=== PATIENT | male | born 1940 | race Caucasian/White ===

== ENCOUNTER → 2020-01-16 | Outpatient (CLI) | payer MEDICARE, BC ==
[2020-01-16 10:23] LABS: HCT 47.9 % (39.0-53.0); HGB 15.1 gm/dL (13.0-17.5); MCHC 31.4 g/dL (31.0-37.0); MCV 95.5 fL (80.0-100.0); Mean Platelet Volume 8.3; Platelet Count 187 k/uL (150-450); RBC 5.02 m/uL (4.30-5.90); RDW 13.3 % (11.5-15.5); WBC 9.9 k/uL (3.8-10.6)
[2020-01-16 17:26] LABS: African American GFR (CKD) 99.2 (60.0-200.0); Anion Gap 8.1 mmol/L (4.00-12.00); BUN/Creat Ratio 33.75 Ratio (12.00-20.00); Calcium 8.9 mg/dL (8.7-10.3); Carbon Dioxide 26.9 mmol/L (21.6-31.8); Chol/HDL Ratio 3.84; LDL Cholesterol,Calculated 106.2 mg/dL (0.0-131.0); Non-African American GFR(CKD) 85.6 (60.0-200.0); Potassium 4.6 mmol/L (3.5-5.5); VLDL Calculation 15.8 mg/dL (5.00-40.00)
[2020-01-16 18:51] LABS: Urine Creatinine 83.9 mg/dL
== END | disposition home or self-care (01) ==
LOC: LABWHC1 09:07
PROVIDERS: ATTEND Nurse Practitioner
DX: I48.21 Permanent atrial fibrillation (principal); E66.9 Obesity, unspecified; I10 Essential (primary) hypertension; E78.5 Hyperlipidemia, unspecified; E55.9 Vitamin D deficiency, unspecified
CPT/HCPCS: 36415; 80048; 80061; 82043; 82306; 82570; 83735; 84156; 84439; 84443; 84450; 84460; 85027

== ENCOUNTER 2020-10-09 13:02 | Emergency (ER) | payer MEDICARE, BC ==
--- NOTE | 2020-10-09 14:15 | ED ---
General Adult HPI - General Chief complaint: Recheck/Abnormal Lab/Rx Stated complaint: foreign object in throat Time Seen by Provider: 10/09/20 13:37 Source: patient Mode of arrival: ambulatory Limitations: physical limitation - History of Present Illness Initial comments: 80-year-old male presents to the emergency department with the chief complaint of a fish bone stuck in the throat. States he ate fish about 3 hours prior to arrival and has developed a foreign body sensation in his throat. Patient believes there is a piece stuck in his throat. Although, he is able to swallow with pain difficulties, he continues to have discomfort with swallowing. He denies any difficulty breathing. He denies any choking episodes. - Related Data Home Medications Medication Instructions Recorded Confirmed Rivaroxaban [Xarelto] 20 mg PO DAILY 02/21/14 10/09/20 lisinopriL [Zestril] 5 mg PO DAILY 02/21/14 10/09/20 Cholecalciferol [Vitamin D3 (25 50 mcg PO BID 10/09/20 10/09/20 Mcg = 1000 Iu)] Metoprolol Tartrate [Lopressor] 25 mg PO BID 10/09/20 10/09/20 Allergies Allergy/AdvReac Type Severity Reaction Status Date / Time ibuprofen [From Motrin] Allergy Unknown Verified 10/09/20 14:17 Review of Systems ROS Statement: Those systems with pertinent positive or pertinent negative responses have been documented in the HPI. ROS Other: All systems not noted in ROS Statement are negative. Past Medical History Past Medical History: CVA/TIA, Hyperlipidemia, Hypertension History of Any Multi-Drug Resistant Organisms: None Reported Additional Past Surgical History / Comment(s): kidney stone removal Past Psychological History: No Psychological Hx Reported Smoking Status: Never smoker Past Alcohol Use History: None Reported Past Drug Use History: None Reported General Exam Limitations: physical limitation General appearance: alert, in no apparent distress, obese Head exam: Present: atraumatic, normocephalic, normal inspection Eye exam: Present: normal appearance, PERRL, EOMI Pupils: Present: normal accommodation ENT exam: Present: normal exam, normal oropharynx (No visible foreign bodies in the posterior pharynx.), mucous membranes moist Neck exam: Present: normal inspection, full ROM. Absent: tenderness Respiratory exam: Present: normal lung sounds bilaterally. Absent: respiratory distress, wheezes, rales, rhonchi, stridor Cardiovascular Exam: Present: regular rate, normal rhythm, normal heart sounds. Absent: systolic murmur Extremities exam: Present: normal inspection, full ROM, normal capillary refill. Absent: tenderness, pedal edema, joint swelling Back exam: Present: normal inspection, full ROM. Absent: tenderness, CVA tenderness (R) Neurological exam: Present: alert, oriented X3 Psychiatric exam: Present: normal affect, normal mood Skin exam: Present: warm, dry, intact, normal color Course Vital Signs 10/09/20 10/09/20 10/09/20 13:22 15:06 15:20 Temperature 97.8 F 98.0 F Pulse Rate 99 96 Respiratory 20 18 Rate Blood Pressure 150/79 130/74 O2 Sat by Pulse 95 96 Oximetry Medical Decision Making - Medical Decision Making 80-year-old male presents to the emergency department with the chief complaint of a fish bone stuck in the throat. On physical examination, patient does not appear to be in any respiratory distress. He still able to swallow without difficulties. I was not able to detect any foreign bodies in the oropharynx. Soft tissue neck x-ray reveals no findings of any foreign body. The patient did report that his symptoms have been gradually improving ever since he began to have symptoms. Patient was given a GI cocktail and observed. He did report improvement in his symptoms. I suspect the patient likely had a scratch in the throat as the fishbone went down to the stomach. Patient will be discharged with outpatient follow-up. Return parameters discussed the patient is standing and agreeable. Case discussed with Dr. Luis Schofield Clinical Impression: Throat discomfort Disposition: HOME SELF-CARE Condition: Stable Instructions (If sedation given, give patient instructions): Strep Throat (DC) Additional Instructions: Please return to the Emergency Department if symptoms worsen or any other concerns. Is patient prescribed a controlled substance at d/c from ED?: No Referrals: None,Stated [Primary Care Provider] - 1-2 days Time of Disposition: 15:07
--- NOTE | 2020-10-09 14:22 | XR ---
EXAMINATION TYPE: XR soft tissue neck DATE OF EXAM: 10/09/2020 COMPARISON: NONE HISTORY: Fishbone stuck in the throat TECHNIQUE: 3 views FINDINGS: Epiglottis is normal. Tonsils and adenoids appear normal. There is calcification of the thy roid and cricoid cartilage which obscures the cervical esophagus to some extent. IMPRESSION: No definite foreign body in the soft tissues of the neck.
[2020-10-09] MEDS ORDERED: MAG HYDROX/AL HYDROX/SIMETH 30 ML, HYOSCYAMINE ELIXIR 10 ML, LIDOCAINE VISCOUS 2% 10 ML PO STA ×3 (14:40)
[2020-10-09 15:09] VITALS: BP 130/74; PULSE 96; RESP 18
[2020-10-09 15:43] VITALS: TEMP 98
== END 2020-10-09 15:20 | disposition home or self-care (01) ==
LOC: EC 13:02
DX: R07.0 Pain in throat (principal); E78.5 Hyperlipidemia, unspecified; I10 Essential (primary) hypertension; Z87.442 Personal history of urinary calculi; Z86.73 Personal history of transient ischemic attack (TIA), and cerebral infarction without residual deficits
CPT/HCPCS: 70360; 99283

== ENCOUNTER 2021-08-02 08:50 | Emergency (ER) | payer MEDICARE, BC ==
[2021-08-02 08:55] VITALS: BP 124/78; PULSE 90; RESP 18; TEMP 97.6
--- NOTE | 2021-08-02 09:02 | ED ---
General Adult HPI - General Source: patient, RN notes reviewed, old records reviewed Mode of arrival: wheelchair Limitations: no limitations <Ramiro Sanderson - Last Filed: 08/02/21 09:55> <Shantelle Lester - Last Filed: 08/02/21 10:45> - General Chief complaint: Extremity Injury, Lower Stated complaint: fall, ankle pain Time Seen by Provider: 08/02/21 08:55 - History of Present Illness Initial comments: This is an 81-year-old male who presents emergency department stating that he fell last night and his ankle on the left side was hurting extremely bad so he tried to push off her shoe with his other foot he felt a pop and the pain was much improved. Patient still complains of lateral and medial ankle pain little bit of lateral foot pain and some proximal leg pain. Patient denies any knee pain. Patient denies any hip pain. Patient denies hitting his head or neck. Patient denies any other problems besides what was previously mentioned. Patient is on a blood thinner. (Ramiro Sanderson) - Related Data Home Medications Medication Instructions Recorded Confirmed Rivaroxaban [Xarelto] 20 mg PO DAILY 02/21/14 10/09/20 lisinopriL [Zestril] 5 mg PO DAILY 02/21/14 10/09/20 Cholecalciferol [Vitamin D3 (25 50 mcg PO BID 10/09/20 10/09/20 Mcg = 1000 Iu)] Metoprolol Tartrate [Lopressor] 25 mg PO BID 10/09/20 10/09/20 Allergies Allergy/AdvReac Type Severity Reaction Status Date / Time ibuprofen [From Motrin] Allergy Unknown Verified 08/02/21 08:54 Review of Systems ROS Other: All systems not noted in ROS Statement are negative. <Ramiro Sanderson - Last Filed: 08/02/21 09:55> ROS Other: All systems not noted in ROS Statement are negative. <Shantelle Lester - Last Filed: 08/02/21 10:45> ROS Statement: Those systems with pertinent positive or pertinent negative responses have been documented in the HPI. Past Medical History Past Medical History: CVA/TIA, Hyperlipidemia, Hypertension History of Any Multi-Drug Resistant Organisms: None Reported Additional Past Surgical History / Comment(s): kidney stone removal Past Psychological History: No Psychological Hx Reported Smoking Status: Never smoker Past Alcohol Use History: None Reported Past Drug Use History: None Reported <Ramiro Sanderson - Last Filed: 08/02/21 09:55> General Exam Limitations: no limitations <Ramiro Sanderson - Last Filed: 08/02/21 09:55> - General Exam Comments Initial Comments: GENERAL Patient is well-developed and well-nourished. Patient is in mild distress. EYES Patient's pupils are equal and round. Extraocular motion is intact SKIN Unremarkable NEURO The patient is alert and oriented 3 PYSCH Patient has normal interpersonal interactions. MUSCULOSKELETAL Patient has significant swelling and ecchymosis to his ankle he has some proximal leg tenderness at the fibula. Patient has tenderness to both lateral and medial malleolus and some slight tenderness to the proximal fifth metatarsal. (Ramiro Sanderson) Course Vital Signs 08/02/21 08:52 Temperature 97.6 F Pulse Rate 90 Respiratory 18 Rate Blood Pressure 124/78 O2 Sat by Pulse 96 Oximetry Procedures - Orthopedic Splinting/Casting Injury #1 Side: left Lower Extremity Immobilizer: posterior splint, Hu wrap, synthetic pre-padded splint <Shantelle Lester - Last Filed: 08/02/21 10:45> Medical Decision Making <Ramiro Sanderson - Last Filed: 08/02/21 09:55> - Medical Decision Making X-rays of the foot ankle and tibia-fibula show no fracture. Patient was put in a posterior splint. Patient will be following up with orthopedic clear tomorrow. She was given a prescription for a walker (Ramiro Sanderson) Disposition Is patient prescribed a controlled substance at d/c from ED?: No Time of Disposition: 09:57 <Ramiro Sanderson - Last Filed: 08/02/21 09:55> <Shantelle Lester - Last Filed: 08/02/21 10:45> Clinical Impression: Sprain of ligament of ankle Disposition: HOME SELF-CARE Instructions (If sedation given, give patient instructions): Ankle Sprain (ED) Referrals: Miguel Wren DO [Doctor of Osteopathic Medicine] - 1-2 days
--- NOTE | 2021-08-02 09:50 | XR ---
EXAMINATION TYPE: XR tibia fibula LT, XR foot complete LT, XR ankle complete LT DATE OF EXAM: 08/02/2021 CLINICAL HISTORY: Pain and swelling after fall injury. TECHNIQUE: Two views of the left leg are obtained. 3 views of left ankle and foot. COMPARISON: None. FINDINGS: There is no acute fracture or dislocation seen in the left tibia or fibula. Visualized por tion of left knee joint appears within normal limits. Prominent posterior arteriovascular calcificati on is seen. Images of left ankle show no acute fracture or dislocation. Ankle mortise symmetry is maintained. Mil d to moderate diffuse subcutaneous edema and soft tissue swelling is noted. Images of the left foot show no acute displaced fracture. Osseous structures are demineralized. There is moderate narrowing first metatarsophalangeal joint. There is moderate spurring dorsal base of the cuneiform extending towards the navicular bone. IMPRESSION: There is no acute fracture or dislocation seen in the left leg, ankle, or foot.
== END 2021-08-02 11:32 | disposition home or self-care (01) ==
LOC: EC 08:50
DX: S93.492A Sprain of other ligament of left ankle, initial encounter (principal); E78.5 Hyperlipidemia, unspecified; I10 Essential (primary) hypertension; Z88.6 Allergy status to analgesic agent; Z86.73 Personal history of transient ischemic attack (TIA), and cerebral infarction without residual deficits; Z87.442 Personal history of urinary calculi; W18.30XA Fall on same level, unspecified, initial encounter
CPT/HCPCS: 29515; 99283

== ENCOUNTER 2021-08-06 18:44 | Inpatient (IN) | payer MEDICARE, BC ==
[2021-08-06] MEDS ORDERED: DOXYCYCLINE 100 MG in SODIUM CHLORIDE 0.9% 100 ML IVPB ONE (18:59)
--- NOTE | 2021-08-06 19:03 | ED ---
Extremity Problem HPI - General Chief complaint: Extremity Problem,Nontraumatic Stated complaint: infection lt leg Time Seen by Provider: 08/06/21 18:52 Source: patient, RN notes reviewed Mode of arrival: wheelchair Limitations: no limitations - History of Present Illness Initial comments: This is a pleasant 81-year-old male with a history of CVA, hyperlipidemia, hypertension. He presents to the emergency department today complaining of an infection to his left lower leg. Patient states he was seen here about 4 days ago after tripping over his wheelchair. Patient sustained some scrapes to his left lower leg. Patient had x-rays done here which were negative. Patient states he noted some redness to the area yesterday. He went to urgent care and was sent here for evaluation. Patient states she feels fine otherwise. Patient denies any fever or chills. Denies any shortness breath or chest pain. No other skin rashes or lesions. Erythema is relegated to the left lower extremities. Patient does have some intact blood noted. No headache, no fever or chills, no changes in vision or hearing, no sore throat or difficulty with speech, no neck pain, no chest pain or shortness of breath, no abdominal pain, no nausea or vomiting, no changes in urination or bowel movements, no numbness or tingling, patient has had no subsequent injury. Is not diabetic, no immunosuppression. - Related Data Home Medications Medication Instructions Recorded Confirmed Rivaroxaban [Xarelto] 20 mg PO DAILY 02/21/14 08/06/21 lisinopriL [Zestril] 5 mg PO DAILY 02/21/14 08/06/21 Cholecalciferol [Vitamin D3 (25 50 mcg PO BID 10/09/20 08/06/21 Mcg = 1000 Iu)] Metoprolol Tartrate [Lopressor] 25 mg PO BID 10/09/20 08/06/21 Nystatin 100,000Unit/gm Cream 1 applic TOPICAL BID 08/06/21 08/06/21 [Mycostatin Cream] Triamcinolone 0.025% Cream 1 applic TOPICAL BID 08/06/21 08/06/21 [Kenalog 0.025% Cream] Vit C/E/Zn/Coppr/Lutein/Zeaxan 1 cap PO BID 08/06/21 08/06/21 [Preservision Areds 2 Softgel] Allergies Allergy/AdvReac Type Severity Reaction Status Date / Time ibuprofen [From Motrin] Allergy Unknown Verified 08/06/21 18:46 Review of Systems ROS Statement: Those systems with pertinent positive or pertinent negative responses have been documented in the HPI. ROS Other: All systems not noted in ROS Statement are negative. Past Medical History Past Medical History: CVA/TIA, Hyperlipidemia, Hypertension History of Any Multi-Drug Resistant Organisms: None Reported Additional Past Surgical History / Comment(s): kidney stone removal Past Psychological History: No Psychological Hx Reported Smoking Status: Never smoker Past Alcohol Use History: None Reported Past Drug Use History: None Reported General Exam - General Exam Comments Initial Comments: Elderly male in no significant distress. Patient does not appear to be ill or toxic. Limitations: no limitations General appearance: alert, in no apparent distress Head exam: Present: atraumatic, normocephalic, normal inspection Eye exam: Present: normal appearance, PERRL, EOMI. Absent: scleral icterus, conjunctival injection, periorbital swelling ENT exam: Present: normal exam, mucous membranes moist Neck exam: Present: normal inspection. Absent: tenderness, meningismus, lymphadenopathy Respiratory exam: Present: normal lung sounds bilaterally. Absent: respiratory distress, wheezes, rales, rhonchi, stridor Cardiovascular Exam: Present: regular rate, normal rhythm, normal heart sounds. Absent: systolic murmur, diastolic murmur, rubs, gallop, clicks GI/Abdominal exam: Present: soft, normal bowel sounds. Absent: distended, tenderness, guarding, rebound, rigid Extremities exam: Present: full ROM, normal capillary refill, pedal edema. Absent: tenderness, joint swelling, calf tenderness Back exam: Present: normal inspection Neurological exam: Present: alert, oriented X3, CN II-XII intact Psychiatric exam: Present: normal affect, normal mood Skin exam: Present: warm, dry, intact, normal color, erythema (Erythema, significant in the left lower leg. Consistent with cellulitis), other (Intact bulla noted to bilateral lower legs.). Absent: rash Course Vital Signs 08/06/21 08/06/21 18:46 21:44 Temperature 97.5 F L 97.3 F L Pulse Rate 91 89 Respiratory 16 16 Rate Blood Pressure 119/80 111/66 O2 Sat by Pulse 96 96 Oximetry - Reevaluation(s) Reevaluation #1: 08/06/21 20:24 Medical record is reviewed Symptoms are unchanged, hemodialysis stable, capillary refill less than 2 seconds Patient is informed of results and questions answered Patient in no distress Procedures - Sepsis Sepsis Focused Exam #1 Sepsis Focused Exam Date: 08/06/21 Sepsis Focused Exam Time: 21:42 Sepsis Focused Exam Complete: Yes Vital Signs & RN Notes Reviewed: Yes Capillary Refill: < 2 Seconds: Fingers, Toes Peripheral Pulses: Strong: Radial (R), Radial (L), Posterior Tibialis (R), Posterior Tibialis (L), Dorsalis Pedis (R), Dorsalis Pedis (L) Skin Color: Normal for Patient Respiratory Exam: normal lung sounds Cardiovascular Exam: regular rate Medical Decision Making - Medical Decision Making Patient previously had Streptococcus epidermidis in 2016. We'll cover with doxycycline for the moment until initial laboratory investigations her back. Note that the patient is on Xarelto Patient hemodynamically stable. Meets the sepsis criteria. Started on IV fluids at 130 mL per hour. Antibiotics ordered. Case discussed in detail with the on-call hospitalist from [facility], Dr. Lea. The case was discussed in detail with ED attending physician. Presentation, findings, treatment plan discussed in detail. Patient hemodynamically stable at admission - Lab Data Result diagrams: 08/06/21 19:26 08/06/21 19: Lab Results 08/06/21 08/06/21 Range/Units 19:26 19:26 WBC 12.4 H (3.8-10.6) k/uL RBC 4.57 (4.30-5.90) m/uL Hgb 14.4 (13.0-17.5) gm/dL Hct 43.6 (39.0-53.0) % MCV 95.5 (80.0-100.0) fL MCH 31.5 (25.0-35.0) pg MCHC 33.0 (31.0-37.0) g/dL RDW 13.8 (11.5-15.5) % Plt Count 207 (150-450) k/uL MPV 8.5 Sodium 133 L (137-145) mmol/L Potassium 4.6 (3.5-5.1) mmol/L Chloride 102 (98-107) mmol/L Carbon Dioxide 27 (22-30) mmol/L Anion Gap 4 mmol/L BUN 30 H (9-20) mg/dL Creatinine 0.76 (0.66-1.25) mg/dL Est GFR (CKD-EPI)AfAm >90 (>60 ml/min/1.73 sqM) Est GFR (CKD-EPI)NonAf 86 (>60 ml/min/1.73 sqM) Glucose 96 (74-99) mg/dL Calcium 8.5 (8.4-10.2) mg/dL Total Bilirubin 0.9 (0.2-1.3) mg/dL AST 26 (17-59) U/L ALT 20 (4-49) U/L Alkaline Phosphatase 61 (38-126) U/L Total Protein 6.6 (6.3-8.2) g/dL Albumin 3.5 (3.5-5.0) g/dL Critical Care Time Critical Care Time: Yes (Sepsis criteria, reevaluation patient's condition. Evaluation of diagnosti) Total Critical Care Time: 30 Disposition Clinical Impression: Bilateral cellulitis of lower leg, Sepsis Disposition: ADMITTED IP TO THIS [facility] Condition: Stable Referrals: Demarco Calderon MD [Primary Care Provider] - 1-2 days Time of Disposition: 20:25 Decision to Admit Reason: Admit from EC Decision Time: 20:25
[2021-08-06 20:05] LABS: HCT 43.6 % (39.0-53.0); HGB 14.4 gm/dL (13.0-17.5); MCH 31.5 pg (25.0-35.0); MCV 95.5 fL (80.0-100.0); Mean Platelet Volume 8.5; Platelet Count 207 k/uL (150-450); RBC 4.57 m/uL (4.30-5.90); RDW 13.8 % (11.5-15.5); WBC 12.4 k/uL (3.8-10.6)
[2021-08-06 20:17] LABS: ALT 20 U/L (4-49); AST 26 U/L (17-59); African American GFR (CKD) >90 (>60 ml/min/1.73 sqM); Albumin 3.5 g/dL (3.5-5.0); Alkaline Phosphatase 61 U/L (38-126); Anion Gap 4 mmol/L; Blood Urea Nitrogen 30 mg/dL (9-20); Calcium 8.5 mg/dL (8.4-10.2); Carbon Dioxide 27 mmol/L (22-30); Chloride 102 mmol/L (98-107); Glucose 96 mg/dL (74-99); Non-African American GFR(CKD) 86 (>60 ml/min/1.73 sqM); Potassium 4.6 mmol/L (3.5-5.1); Sodium 133 mmol/L (137-145); Total Bilirubin 0.9 mg/dL (0.2-1.3); Total Protein 6.6 g/dL (6.3-8.2)
[2021-08-06] MEDS ORDERED: SODIUM CHLORIDE 0.9% 500 ML 500 ML IV ONE (20:39)
[2021-08-06] MEDS ORDERED: ONDANSETRON 4 MG/2 ML VIAL IVP PRN (21:11)
[2021-08-06] MEDS ORDERED: ACETAMINOPHEN TAB 325 MG TAB PO PRN (21:11)
[2021-08-06] MEDS: SODIUM CHLORIDE 0.9% 1,000 ML IV SCH (21:36)
--- NOTE | 2021-08-07 02:32 | P.HPIM ---
History of Present Illness H&P Date: 08/06/21 The patient is an 81-year-old male with a PMH of hypertension, hyperlipidemia, and CVA (on Xarelto) who presents to the emergency room with complaints of left leg pain and redness. The patient had initially presented to the emergency room on 08/07 after he had a mechanical fall where he suffered abrasions and laceration of the left leg. The patient had undergone x-rays which were unremarkable and the patient was subsequently sent home. He reports however that over the past 24 hours, he noticed gradually worsening redness and pain of the leg. He went to an urgent care center earlier today from where he was sent to the emergency room. Denied any additional complaints. Denied extremity any fever, chills, chest pain, shortness of breath, nausea, vomiting, abdominal pain, diarrhea. Review of systems: Pertinent positives and negatives as discussed in HPI, a complete review of systems was performed and all other systems are negative. Physical examination: General: non toxic, no distress, appears at stated age, morbidly obese Derm: Left lower extremity circumferential erythema, warmth, and tenderness, warm, dry Head: atraumatic, normocephalic, symmetric Eyes: EOMI, no lid lag, anicteric sclera, pupils equal round reactive to light ENT: Nose and ears atraumatic, no thrush, no pharyngeal erythema Neck: No thyromegaly, no cervical lymphadenopathy, trachea midline, supple Mouth: no lip lesion, mucus membranes moist Cardiovascular: S1S2 reg, no murmur, positive posterior tibial pulse bilateral, left lower extremity 1+ pitting edema to knees, capillary refill less than 2 seconds Lungs: CTA bilateral, no rhonchi, no rales , no accessory muscle use Abdominal: soft, nontender to palpation, no guarding, no appreciable organomegaly, normal bowel sounds Ext: no gross muscle atrophy, muscle strength 5 out of 5 in all 4 extremities grossly, no contractures, Neuro: CN II-XI grossly intact, light touch intact all 4 extremities, finger to nose within normal limits, Psych: Alert, oriented, appropriate affect Assessment/plan Sepsis secondary to Left lower extremity cellulitis -Continue with Doxycycline and Cefazolin -Follow up blood cultures -IV fluids -Obtain left lower extremity Doppler to rule out DVT Chronic conditions: Hypertension, hyperlipidemia, history of CVA -Continue with home meds DVT prophylaxis -Xarelto The patient is admitted with an anticipated greater than 2 midnight stay for evaluation of cellulitis CODE STATUS: Full Code Discussed with: Patient Anticipated discharge date: 08/[address]: Home Past Medical History Past Medical History: CVA/TIA, Hyperlipidemia, Hypertension History of Any Multi-Drug Resistant Organisms: None Reported Additional Past Surgical History / Comment(s): kidney stone removal Past Psychological History: No Psychological Hx Reported Smoking Status: Never smoker Past Alcohol Use History: None Reported Past Drug Use History: None Reported Medications and Allergies Home Medications Medication Instructions Recorded Confirmed Type Rivaroxaban [Xarelto] 20 mg PO DAILY 02/21/14 08/06/21 History lisinopriL [Zestril] 5 mg PO DAILY 02/21/14 08/06/21 History Cholecalciferol [Vitamin D3 (25 50 mcg PO BID 10/09/20 08/06/21 History Mcg = 1000 Iu)] Metoprolol Tartrate [Lopressor] 25 mg PO BID 10/09/20 08/06/21 History Nystatin 100,000Unit/gm Cream 1 applic TOPICAL BID 08/06/21 08/06/21 History [Mycostatin Cream] Triamcinolone 0.025% Cream 1 applic TOPICAL BID 08/06/21 08/06/21 History [Kenalog 0.025% Cream] Vit C/E/Zn/Coppr/Lutein/Zeaxan 1 cap PO BID 08/06/21 08/06/21 History [Preservision Areds 2 Softgel] Allergies Allergy/AdvReac Type Severity Reaction Status Date / Time ibuprofen [From Motrin] Allergy Unknown Verified 08/06/21 18:46 Physical Exam Vitals: Vital Signs Temp Pulse Pulse Resp BP BP Pulse Ox 08/07/21 00:10 97.8 F 89 18 128/75 95 08/06/21 21:44 97.3 F L 89 16 111/66 96 08/06/21 18:46 97.5 F L 91 16 119/80 96 Intake and Output 08/06/21 08/06/21 08/07/21 14:59 22:59 06:59 Other: Weight 136.078 kg 136.078 kg Results CBC & Chem 7: 08/06/21 19:26 08/06/21 19:26 Labs: Abnormal Lab Results - Last 24 Hours (Table) 08/06/21 08/06/21 Range/Units 19:26 19:26 WBC 12.4 H (3.8-10.6) k/uL Sodium 133 L (137-145) mmol/L BUN 30 H (9-20) mg/dL Thrombosis Risk Factor Assmnt - Choose All That Apply Any of the Below Risk Factors Present?: No Other Risk Factors: Yes Each Risk Factor Represents 3 Points: Age 75 years or older Other congenital or acquired thrombophilia - If yes, enter type in comment: No Thrombosis Risk Factor Assessment Total Risk Factor Score: 3 Thrombosis Risk Factor Assessment Level: Moderate Risk
[2021-08-07] MEDS: SODIUM CHLORIDE 0.9% 1,000 ML IV SCH ×2 (05:29→06:00)
[2021-08-07 06:58] LABS: Basophils % (A) 0 %; Eosinophils # (A) 0.3 k/uL (0-0.7); Eosinophils % (A) 3 %; HCT 43.5 % (39.0-53.0); Lymphocytes # (A) 0.9 k/uL (1.0-4.8); Lymphocytes % (A) 9 %; MCH 31.4 pg (25.0-35.0); MCHC 32.1 g/dL (31.0-37.0); Mean Platelet Volume 8.5; Monocytes # (A) 0.5 k/uL (0-1.0); Monocytes % (A) 5 %; Neutrophils # (A) 8.1 k/uL (1.3-7.7); Neutrophils % (A) 81 %; Platelet Count 176 k/uL (150-450); RBC 4.44 m/uL (4.30-5.90); RDW 13.9 % (11.5-15.5); WBC 9.9 k/uL (3.8-10.6)
[2021-08-07] MEDS: lisinopriL 5 MG TAB PO SCH (07:09)
[2021-08-07] MEDS: METOPROLOL TARTRATE 25 MG TAB PO SCH ×2 (07:09→20:37)
[2021-08-07] MEDS: RIVAROXABAN 10 MG TAB PO SCH (07:10)
[2021-08-07] MEDS: CHOLECALCIFEROL 25 MCG (1000 IU) TABLET PO SCH ×2 (07:10→20:37)
[2021-08-07 07:11] LABS: African American GFR (CKD) >90 (>60 ml/min/1.73 sqM); Anion Gap 2 mmol/L; Blood Urea Nitrogen 22 mg/dL (9-20); Carbon Dioxide 27 mmol/L (22-30); Chloride 106 mmol/L (98-107); Glucose 95 mg/dL (74-99); Non-African American GFR(CKD) 88 (>60 ml/min/1.73 sqM); Potassium 4.1 mmol/L (3.5-5.1); Sodium 135 mmol/L (137-145)
[2021-08-07] MEDS: DOXYCYCLINE 100 MG in SODIUM CHLORIDE 0.9% 100 ML IVPB SCH ×2 (07:43→20:36)
--- NOTE | 2021-08-07 11:19 | US ---
EXAMINATION TYPE: US venous doppler duplex LE BI DATE OF EXAM: 08/07/2021 10:26 AM COMPARISON: NONE CLINICAL HISTORY: LE swelling and cellulitis. Bilateral leg swelling, patient on blood thinners Exam done portable SIDE PERFORMED: Bilateral TECHNIQUE: The lower extremity deep venous system is examined utilizing real time linear array sonog ana laura with graded compression, doppler sonography and color-flow sonography. VESSELS IMAGED: Common Femoral Vein Deep Femoral Vein Greater Saphenous Vein * Femoral Vein Popliteal Vein Small Saphenous Vein * Proximal Calf Veins (* superficial vessels) Right Leg: Appears negative for DVT Left Leg: Appears negative for DVT IMPRESSION: 1. Bilateral lower extremity ultrasound negative for deep venous thrombosis.
--- NOTE | 2021-08-07 14:44 | P.PN ---
Subjective Patient was examined at bedside today continues to have significant lower extremity cellulitis left more than right. Does have a blister present on the right side as well. It is clearly demarcated and cellulitis is not worsening. Patient denies any trauma to that area however does significant yard work which she conjugates this towards. He denies any episodes of fever, chills, nausea or vomiting. Pain is well-controlled currently. Objective - Vital Signs Vital signs: Vital Signs Temp 98.0 F 08/07/21 07:56 Pulse 94 08/07/21 07:56 Resp 18 08/07/21 07:56 BP 120/78 08/07/21 07:56 Pulse Ox 96 08/07/21 07:56 Intake & Output 08/06/21 08/07/21 08/07/21 18:59 06:59 18:59 Weight 136.078 kg 136.078 kg Other: Voiding Method Toilet # Voids 3 - Exam Physical examination: General: non toxic, no distress, appears at stated age, morbidly obese Derm: Left lower extremity circumferential erythema, warmth, and tenderness, warm, dry Head: atraumatic, normocephalic, symmetric Eyes: EOMI, no lid lag, anicteric sclera, pupils equal round reactive to light ENT: Nose and ears atraumatic, no thrush, no pharyngeal erythema Mouth: no lip lesion, mucus membranes moist Cardiovascular: S1S2 reg, no murmur, positive posterior tibial pulse bilateral, left lower extremity 1+ pitting edema to knees, capillary refill less than 2 seconds Lungs: CTA bilateral, no rhonchi, no rales , no accessory muscle use Abdominal: soft, nontender to palpation, no guarding, no appreciable organomegaly, normal bowel sounds Ext: no gross muscle atrophy, muscle strength 5 out of 5 in all 4 extremities grossly, no contractures, Extremity: Left lower extremity cellulitis involving the mid [place] clearly demarcated- cellulitis did not pass that area. Right lower extremity cellulitis involving slightly lower than the midshin one blister noted no drainage noted. - Labs CBC & Chem 7: 08/07/21 06:42 08/07/21 06:42 Labs: Abnormal Lab Results - Last 24 Hours (Table) 08/06/21 08/06/21 08/07/21 Range/Units 19:26 19:26 06:42 WBC 12.4 H (3.8-10.6) k/uL Neutrophils # 8.1 H (1.3-7.7) k/uL Lymphocytes # 0.9 L (1.0-4.8) k/uL Sodium 133 L (137-145) mmol/L BUN 30 H (9-20) mg/dL Calcium (8.4-10.2) mg/dL 08/07/21 Range/Units 06:42 WBC (3.8-10.6) k/uL Neutrophils # (1.3-7.7) k/uL Lymphocytes # (1.0-4.8) k/uL Sodium 135 L (137-145) mmol/L BUN 22 H (9-20) mg/dL Calcium 8.0 L (8.4-10.2) mg/dL Assessment and Plan Assessment: Sepsis secondary to Left lower extremity cellulitis -Continue with Doxycycline and Cefazolin -Follow up blood cultures -IV fluids we'll discontinue given some venous stasis noted. -Obtain left lower extremity Doppler to rule out DVT-negative -Recommend wound care and IV antibiotics for at least 24 hours. Reevaluate tomorrow morning. Chronic conditions: Hypertension, hyperlipidemia, history of CVA -Continue with home meds DVT prophylaxis -Xarelto The patient is admitted with an anticipated greater than 2 midnight stay for evaluation of cellulitis CODE STATUS: Full Code Discussed with: Patient Anticipated discharge date: 08/[address]: Home
[2021-08-07] MEDS: VIT A,C & E-LUTEIN-MINERALS 1 EACH TAB PO SCH (20:37)
[2021-08-08] MEDS: DOXYCYCLINE 100 MG in SODIUM CHLORIDE 0.9% 100 ML IVPB SCH ×2 (10:04→20:25)
[2021-08-08] MEDS: METOPROLOL TARTRATE 25 MG TAB PO SCH ×2 (10:06→20:25)
[2021-08-08] MEDS: RIVAROXABAN 10 MG TAB PO SCH (10:07)
[2021-08-08] MEDS: CHOLECALCIFEROL 25 MCG (1000 IU) TABLET PO SCH ×2 (10:07→20:24)
[2021-08-08] MEDS: lisinopriL 5 MG TAB PO SCH (10:07)
[2021-08-08] MEDS: VIT A,C & E-LUTEIN-MINERALS 1 EACH TAB PO SCH ×2 (10:07→20:25)
[2021-08-09] MEDS: METOPROLOL TARTRATE 25 MG TAB PO SCH ×2 (09:06→21:36)
[2021-08-09] MEDS: RIVAROXABAN 10 MG TAB PO SCH (09:06)
[2021-08-09] MEDS: CHOLECALCIFEROL 25 MCG (1000 IU) TABLET PO SCH ×2 (09:06→21:36)
[2021-08-09] MEDS: VIT A,C & E-LUTEIN-MINERALS 1 EACH TAB PO SCH ×2 (09:06→21:36)
[2021-08-09] MEDS: lisinopriL 5 MG TAB PO SCH (09:06)
[2021-08-09] MEDS: DOXYCYCLINE 100 MG in SODIUM CHLORIDE 0.9% 100 ML IVPB SCH ×2 (09:07→21:36)
--- NOTE | 2021-08-09 10:56 | P.PN ---
Subjective Progress Note Date: 08/08/21 HISTORY OF PRESENT ILLNESS The patient is an 81-year-old male with a PMH of hypertension, hyperlipidemia, and CVA (on Xarelto) who presents to the emergency room with complaints of left leg pain and redness. The patient had initially presented to the emergency room on 08/07 after he had a mechanical fall where he suffered abrasions and laceration of the left leg. The patient had undergone x-rays which were unremarkable and the patient was subsequently sent home. He reports however that over the past 24 hours, he noticed gradually worsening redness and pain of the leg. He went to an urgent care center earlier today from where he was sent to the emergency room. Denied any additional complaints. Denied extremity any fever, chills, chest pain, shortness of breath, nausea, vomiting, abdominal pa in, diarrhea. 08/08: Patient has significant edema, erythema, hematoma to the lower extremities. We will add Silvadene wraps to be done on a daily basis, obtain culture and a consult for Dr. Babb. Patient is currently on IV doxycycline. He has been resumed on Xarelto. Venous ultrasound is negative for DVT bilaterally. Discharge plan is home with [facility]. REVIEW OF SYSTEMS Constitutional: No fever, no chills, no night sweats. No weight change. No weakness, fatigue or lethargy. No daytime sleepiness. EENT: No headache. No blurred vision or double vision, no loss of vision. No loss of Hearing, no ringing in the ears, no dizziness. No nasal drainage or congestion. No epistaxis. No sore throat. Lungs: No shortness of breath, cough, no sputum production. No wheezing. Cardiovascular: No chest pain, no lower extremity edema. No palpitations. No paroxysmal nocturnal dyspnea. No orthopnea. No lightheadedness or dizziness. No syncopal episodes. Abdominal: No abdominal pain. No nausea, vomiting. No diarrhea. No constipation. No bloody or tarry stools. No loss of appetite. Genitourinary: No dysuria, increased frequency, urgency. No urinary retention. Musculoskeletal: No myalgias. Mild generalized muscle weakness, no gait dysfunction, no frequent falls. No back pain. No neck pain. Integumentary: Noted wounds cellulitis, hematoma. No rash or pruritus. No unusual bruising. No change in hair or nails. Neurologic: No aphasia. No facial droop. No change in mentation. No head injury. No headache. No paralysis. No paresthesia. Psychiatric: No depression. No anxiety. No mood swings. Endocrine: No abnormal blood sugars. No weight change. No excessive sweating or thirst. No cold intolerance. PHYSICAL EXAMINATION Gen: This is a morbidly obese 81-year-old male. He is resting recliner and appears to be comfortable and in no acute distress. HEENT: Head is atraumatic, normocephalic. Pupils equal, round. Sclerae is anicteric. NECK: Supple. No JVD. No lymphadenopathy. No thyromegaly. LUNGS: Clear to auscultation. No wheezes or rhonchi. No intercostal retractions. HEART: Regular rate and rhythm. No murmur. ABDOMEN: Soft. Bowel sounds are present. No masses. No tenderness. EXTREMITIES: 2+ bilateral pedal edema with dark color changes, erythema and edema with blistering. NEUROLOGICAL: Patient is awake, alert and oriented x3. Cranial nerves 2 through 12 are grossly intact. ASSESSMENT AND PLAN Sepsis secondary to Left lower extremity cellulitis and hematoma -Continue with Doxycycline -Follow up blood cultures -Local wound care with Silvadene wraps -Consult with Dr. Babb Chronic conditions: Hypertension, hyperlipidemia, history of CVA -Continue with home meds DVT prophylaxis -Xarelto DISCHARGE PLAN Home with [facility]. Impression and plan of care have been directed as dictated by the signing physic ian. Rylee Tomlinson nurse practitioner acting as scribe for signing physician. Objective - Vital Signs Vital signs: Vital Signs Temp 98.4 F 08/08/21 07:58 Pulse 94 08/08/21 07:58 Resp 18 08/08/21 07:58 BP 112/70 08/08/21 07:58 Pulse Ox 92 L 08/08/21 07:58 Intake & Output 08/07/21 08/08/21 08/08/21 18:59 06:59 18:59 Other: Voiding Method Toilet Toilet Toilet # Voids 6 11 # Bowel Movements 1 - Labs CBC & Chem 7: 08/07/21 06:42 08/07/21 06:42 Labs: Microbiology - Last 24 Hours (Table) 08/06/21 20:30 Blood Culture - Preliminary Blood No Growth after 24 hours 08/06/21 20:45 Blood Culture - Preliminary Blood No Growth after 24 hours
--- NOTE | 2021-08-09 10:59 | P.PN ---
Subjective Progress Note Date: 08/09/21 HISTORY OF PRESENT ILLNESS The patient is an 81-year-old male with a PMH of hypertension, hyperlipidemia, and CVA (on Xarelto) who presents to the emergency room with complaints of left leg pain and redness. The patient had initially presented to the emergency room on 08/07 after he had a mechanical fall where he suffered abrasions and laceration of the left leg. The patient had undergone x-rays which were unremarkable and the patient was subsequently sent home. He reports however that over the past 24 hours, he noticed gradually worsening redness and pain of the leg. He went to an urgent care center earlier today from where he was sent to the emergency room. Denied any additional complaints. Denied extremity any fever, chills, chest pain, shortness of breath, nausea, vomiting, abdominal pa in, diarrhea. 08/08: Patient has significant edema, erythema, hematoma to the lower extremities. We will add Silvadene wraps to be done on a daily basis, obtain culture and a consult for Dr. Babb. Patient is currently on IV doxycycline. He has been resumed on Xarelto. Venous ultrasound is negative for DVT bilaterally. Discharge plan is home with [facility]. 08/09: Patient has been seen by Dr. Babb and started on 2 g IV piggyback every 8 hours and continued on IV doxycycline. Patient is receiving Silvadene wraps daily with noted improvement of the erythema from yesterday. Patient has been afebrile, heart rate 92, blood pressure 125/74, pulse ox 97% on room air. Patient denies any new concerns. Anticipate probable discharge home tomorrow. REVIEW OF SYSTEMS Constitutional: No fever, no chills, no night sweats. No weight change. No weakness, fatigue or lethargy. No daytime sleepiness. EENT: No headache. No blurred vision or double vision, no loss of vision. No loss of Hearing, no ringing in the ears, no dizziness. No nasal drainage or congestion. No epistaxis. No sore throat. Lungs: No shortness of breath, cough, no sputum production. No wheezing. Cardiovascular: No chest pain, no lower extremity edema. No palpitations. No paroxysmal nocturnal dyspnea. No orthopnea. No lightheadedness or dizziness. No syncopal episodes. Abdominal: No abdominal pain. No nausea, vomiting. No diarrhea. No constipation. No bloody or tarry stools. No loss of appetite. Genitourinary: No dysuria, increased frequency, urgency. No urinary retention. Musculoskeletal: No myalgias. Mild generalized muscle weakness, no gait dysfunction, no frequent falls. No back pain. No neck pain. Integumentary: Noted wounds cellulitis, hematoma to lower extremities. No rash or pruritus. No unusual bruising. No change in hair or nails. Neurologic: No aphasia. No facial droop. No change in mentation. No head injury. No headache. No paralysis. No paresthesia. Psychiatric: No depression. No anxiety. No mood swings. Endocrine: No abnormal blood sugars. No weight change. No excessive sweating or thirst. No cold intolerance. PHYSICAL EXAMINATION Gen: This is a morbidly obese 81-year-old male. He is resting recliner and appears to be comfortable and in no acute distress. HEENT: Head is atraumatic, normocephalic. Pupils equal, round. Sclerae is anict brent. NECK: Supple. No JVD. No lymphadenopathy. No thyromegaly. LUNGS: Clear to auscultation. No wheezes or rhonchi. No intercostal retractions. HEART: Regular rate and rhythm. No murmur. ABDOMEN: Soft. Bowel sounds are present. No masses. No tenderness. EXTREMITIES: 2+ bilateral pedal edema with dark color changes, erythema and edema with blistering-improved from yesterday. NEUROLOGICAL: Patient is awake, alert and oriented x3. Cranial nerves 2 through 12 are grossly intact. ASSESSMENT AND PLAN Sepsis secondary to Left lower extremity cellulitis and hematoma -Continue with Doxycycline and Kefzol IV -Follow up blood cultures -Local wound care with Silvadene wraps -Consult with Dr. Babb appreciated Chronic conditions: Hypertension, hyperlipidemia, history of CVA -Continue with home meds DVT prophylaxis -Xarelto DISCHARGE PLAN Home with [facility] on Sunday. Impression and plan of care have been directed as dictated by the signing physician. Rylee Tomlinson nurse practitioner acting as scribe for signing physician. Objective - Vital Signs Vital signs: Vital Signs Temp 97.6 F 08/09/21 07:16 Pulse 92 08/09/21 08:23 Resp 18 08/09/21 07:16 BP 125/74 08/09/21 07:16 Pulse Ox 97 08/09/21 07:16 Intake & Output 08/08/21 08/09/21 08/09/21 18:59 06:59 18:59 Intake Total 700 Balance 700 Intake: Intake, IV Titration 200 Amount Doxycycline 100 mg In 100 Sodium Chloride 0.9% 100 ml @ 100 mls/hr IVPB Q12HR [facility] Rx#:[id number] ceFAZolin 2 gm In Sodium 50 Chloride 0.9% 50 ml @ 100 mls/hr IVPB Q8HR [facility] Rx# :[id number] ceFAZolin 2,000 mg In 50 Sodium Chloride 0.9% 50 ml @ 100 mls/hr IVPB Q8HR [facility] Rx#:[id number] Oral 500 Other: Voiding Method Toilet # Voids 6 8 - Labs CBC & Chem 7: 08/07/21 06:42 08/07/21 06:42 Labs: Microbiology - Last 24 Hours (Table) 08/06/21 20:30 Blood Culture - Preliminary Blood No Growth after 48 hours 08/06/21 20:45 Blood Culture - Preliminary Blood No Growth after 48 hours 08/08/21 10:30 Gram Stain - Preliminary Leg - Right Wound Culture - Preliminary
--- NOTE | 2021-08-09 23:41 | P.CONS ---
History of Present Illness - Reason for Consult Consult date: 08/08/21 Bilateral lower extremity cellulitis Requesting physician: Tashi Rich - Chief Complaint Left leg swelling and redness x few days - History of Present Illness Patient is a 81-year-old male with a past medical his significant for hypertension hyperlipidemia CVA in this patient presented to hospital with a left lower leg swelling and redness apparently the patient did tripped over his wheelchair 4 days ago and has developed some laceration and blistering to the left leg and the patient noticed to having increasing redness the day before presentation to the hospital patient did went to the urgent care who subsequently sent the patient to the ER for evaluation and treatment patient on presentation to the hospital was afebrile did have a low-grade fever of 99.3 degrees formulae today patient did have white count of 12.4 kidney function was normal blood culture has been obtained patient did have a lower extremity venous Doppler that was negative for DVT patient was started on cefazolin, infectious disease was consulted for further management of antibiotic therapy, patient denies having any fever or chills has been complaining of some dull aching pain especially to the left leg area 3-4 out of 10 no radiation he did have some blister but no purulent drainage Review of Systems Positive point has been mentioned in the HPI rest of the systems are negative Past Medical History Past Medical History: CVA/TIA, Hyperlipidemia, Hypertension Additional Past Medical History / Comment(s): Shingles, since having shingles will intermittantly get pain around the eye. History of Any Multi-Drug Resistant Organisms: None Reported Additional Past Surgical History / Comment(s): kidney stone removal Past Psychological History: No Psychological Hx Reported Smoking Status: Never smoker Past Alcohol Use History: None Reported Past Drug Use History: None Reported Medications and Allergies Home Medications Medication Instructions Recorded Confirmed Type Rivaroxaban [Xarelto] 20 mg PO DAILY 02/21/14 08/06/21 History lisinopriL [Zestril] 5 mg PO DAILY 02/21/14 08/06/21 History Cholecalciferol [Vitamin D3 (25 50 mcg PO BID 10/09/20 08/06/21 History Mcg = 1000 Iu)] Metoprolol Tartrate [Lopressor] 25 mg PO BID 10/09/20 08/06/21 History Nystatin 100,000Unit/gm Cream 1 applic TOPICAL BID 08/06/21 08/06/21 History [Mycostatin Cream] Triamcinolone 0.025% Cream 1 applic TOPICAL BID 08/06/21 08/06/21 History [Kenalog 0.025% Cream] Vit C/E/Zn/Coppr/Lutein/Zeaxan 1 cap PO BID 08/06/21 08/06/21 History [Preservision Areds 2 Softgel] Allergies Allergy/AdvReac Type Severity Reaction Status Date / Time ibuprofen [From Motrin] Allergy Unknown Verified 08/06/21 18:46 Physical Exam Vitals: Vital Signs Temp Pulse Resp BP Pulse Ox 08/08/21 07:58 98.4 F 94 18 112/70 92 L 08/08/21 02:26 98.6 F 94 18 94/59 94 L 08/07/21 20:04 96 08/07/21 19:35 97.7 F 92 20 138/81 96 08/07/21 15:02 98.2 F 92 18 103/67 96 Intake and Output 08/07/21 08/08/21 08/08/21 22:59 06:59 14:59 Other: Voiding Method Toilet Toilet # Voids 6 11 1 # Bowel Movements 1 GENERAL DESCRIPTION: Elderly male lying in bed, no distress. No tachypnea or accessory muscle of respiration use. HEENT: Shows Pallor , no scleral icterus. Oral mucous membrane is dry. No pharyngeal erythema or thrush NECK: Trachea central, no thyromegaly. LUNGS: Unlabored breathing. Clear to auscultation anteriorly. No wheeze or crackle. HEART: S1, S2, regular rate and rhythm. No loud murmur ABDOMEN: Soft, no tenderness , guarding or rigidity, no organomegaly EXTREMITIES: Bilateral lower extremity with diffuse swelling and some redness and blister. SKIN: No rash, no masses palpable. NEUROLOGICAL: The patient is awake, alert, oriented x3, mood and affect normal. Results CBC & Chem 7: 08/07/21 06:42 08/07/21 06:42 Labs: Microbiology - Last 24 Hours (Table) 08/06/21 20:30 Blood Culture - Preliminary Blood No Growth after 24 hours 08/06/21 20:45 Blood Culture - Preliminary Blood No Growth after 24 hours Assessment and Plan (1) Bilateral cellulitis of lower leg Current Visit: Yes Status: Acute Code(s): L03.116 - CELLULITIS OF LEFT LOWER LIMB; L03.115 - CELLULITIS OF RIGHT LOWER LIMB SNOMED Code(s): 241641798 Plan: 1patient presented to hospital with left lower extremity swelling and redness preceded by trauma to the left leg with a laceration likely component of cellulitis from gram-positive skin favian. 2we will increase the dose of cefazolin to 2 g every 8 hours. 3local care to continue with the Silvadene cream and Hu wrap to keep the swe lling down We will follow on clinical condition and cultures to further adjust medication if needed Thank you for this consultation will follow this patient along with you Time with Patient: Greater than 30
--- NOTE | 2021-08-09 23:46 | P.PN ---
Subjective Progress Note Date: 08/09/21 Principal diagnosis: Left lower extremity cellulitis Patient is 81-year-old male with a recent laceration to the left leg from a wheelchair subsequently developing cellulitis admitted to the hospital for treatment of underlying cellulitis. On today's evaluation that is 08/09/2021, the patient denies having any fever or any chills, patient mentioned leg is feeling better overall. Discomfort has decreased denies any drainage no chest pain shortness of breath or cough no abdominal pain or diarrhea Objective - Vital Signs Vital signs: Vital Signs Temp 97.6 F 08/09/21 07:16 Pulse 92 08/09/21 08:23 Resp 18 08/09/21 07:16 BP 125/74 08/09/21 07:16 Pulse Ox 97 08/09/21 07:16 Intake & Output 08/08/21 08/09/21 08/09/21 18:59 06:59 18:59 Intake Total 700 Balance 700 Intake: Intake, IV Titration 200 Amount Doxycycline 100 mg In 100 Sodium Chloride 0.9% 100 ml @ 100 mls/hr IVPB Q12HR [facility] Rx#:[id number] ceFAZolin 2 gm In Sodium 50 Chloride 0.9% 50 ml @ 100 mls/hr IVPB Q8HR [facility] Rx# :[id number] ceFAZolin 2,000 mg In 50 Sodium Chloride 0.9% 50 ml @ 100 mls/hr IVPB Q8HR [facility] Rx#:[id number] Oral 500 Other: Voiding Method Toilet Toilet # Voids 6 8 - Exam GENERAL DESCRIPTION: An elderly male lying in bed in no distress RESPIRATORY SYSTEM: Unlabored breathing , decreased breath sounds at bases HEART: S1 S2 regular rate and rhythm , ABDOMEN: Soft , no tenderness EXTREMITIES: Bilateral legs are currently wrapped in Hu wrap no drainage and the dressing - Labs CBC & Chem 7: 08/07/21 06:42 08/07/21 06:42 Labs: Microbiology - Last 24 Hours (Table) 08/06/21 20:30 Blood Culture - Preliminary Blood No Growth after 48 hours 08/06/21 20:45 Blood Culture - Preliminary Blood No Growth after 48 hours 08/08/21 10:30 Gram Stain - Preliminary Leg - Right Wound Culture - Preliminary Assessment and Plan (1) Bilateral cellulitis of lower leg Current Visit: Yes Status: Acute Code(s): L03.116 - CELLULITIS OF LEFT LOWER LIMB; L03.115 - CELLULITIS OF RIGHT LOWER LIMB SNOMED Code(s): 027118948 Plan: 1patient presented to hospital with left lower extremity swelling and redness preceded by trauma to the left leg with a laceration likely component of cellulitis from gram-positive skin favian. 2patient to continue with cefazolin to 2 g every 8 hours. 3local care to continue with the Silvadene cream and Hu wrap to keep the swelling down Time with Patient: Less than 30
[2021-08-10] MEDS ORDERED: BACITRACIN OINT 1 EACH PACKET TOPICAL ONE (08:43)
[2021-08-10] MEDS: VIT A,C & E-LUTEIN-MINERALS 1 EACH TAB PO SCH (09:29)
[2021-08-10] MEDS: CHOLECALCIFEROL 25 MCG (1000 IU) TABLET PO SCH (09:29)
[2021-08-10] MEDS: METOPROLOL TARTRATE 25 MG TAB PO SCH (09:30)
[2021-08-10] MEDS: lisinopriL 5 MG TAB PO SCH (09:30)
[2021-08-10] MEDS: RIVAROXABAN 10 MG TAB PO SCH (09:30)
[2021-08-10] MEDS: DOXYCYCLINE 100 MG in SODIUM CHLORIDE 0.9% 100 ML IVPB SCH (09:31)
--- NOTE | 2021-08-10 10:53 | P.DS ---
Providers Date of admission: 08/06/21 23:09 Expected date of discharge: 08/10/21 Attending physician: Tashi Rich Consults: 08/08/21 09:15 Consult Physician Routine Consulting Provider: Baron Babb Consult Reason/Comments: bilat cellulitis Do you want consulting provider notified?: Yes Primary care physician: Demarco Ross [facility] Course: HISTORY OF PRESENT ILLNESS The patient is an 81-year-old male with a PMH of hypertension, hyperlipidemia, and CVA (on Xarelto) who presents to the emergency room with complaints of left leg pain and redness. The patient had initially presented to the emergency room on 08/07 after he had a mechanical fall where he suffered abrasions and laceration of the left leg. The patient had undergone x-rays which were unremarkable and the patient was subsequently sent home. He reports however that over the past 24 hours, he noticed gradually worsening redness and pain of the leg. He went to an urgent care center earlier today from where he was sent to the emergency room. Denied any additional complaints. Denied extremity any fever, chills, chest pain, shortness of breath, nausea, vomiting, abdominal pain, diarrhea. 08/08: Patient has significant edema, erythema, hematoma to the lower extremities. We will add Silvadene wraps to be done on a daily basis, obtain culture and a consult for Dr. Babb. Patient is currently on IV doxycycline. He has been resumed on Xarelto. Venous ultrasound is negative for DVT bilaterally. Discharge plan is home with [facility]. 08/09: Patient has been seen by Dr. Babb and started on 2 g IV piggyback every 8 hours and continued on IV doxycycline. Patient is receiving Silvadene wraps daily with noted improvement of the erythema from yesterday. Patient has been afebrile, heart rate 92, blood pressure 125/74, pulse ox 97% on room air. Patient denies any new concerns. Anticipate probable discharge home tomorrow. 08/10: Patient's lower extremity cellulitis is improving. He has been continued on Kefzol and doxycycline. Patient remains afebrile, heart rate 95, blood pressure 111/71, pulse ox 96% on room air. Wound culture finalized with no growth after 48 hours. Blood culture showing no growth at 72 hours 2 specimens. Leukocytosis has normalized. Patient will be discharged home today in stable condition. DISCHARGE DIAGNOSES Sepsis secondary to Left lower extremity cellulitis and hematoma Hypertension, hyperlipidemia, history of CVA DISCHARGE PLAN Home with [facility] Care Greater than 35 minutes was utilized and coordinating patient's discharge. Impression and plan of care have been directed as dictated by the signing physician. Rylee Tomlinson nurse practitioner acting as scribe for signing physician. Patient Condition at Discharge: Good Plan - Discharge Summary Discharge Rx Participant: No New Discharge Prescriptions: New Doxycycline Hyclate 100 mg PO BID #20 tab SILVER sulfADIAZINE CREAM [Silvadene Cream] 1 applic TOPICAL DAILY #60 gm Continue Rivaroxaban [Xarelto] 20 mg PO DAILY lisinopriL [Zestril] 5 mg PO DAILY Metoprolol Tartrate [Lopressor] 25 mg PO BID Cholecalciferol [Vitamin D3 (25 Mcg = 1000 Iu)] 50 mcg PO BID Vit C/E/Zn/Coppr/Lutein/Zeaxan [Preservision Areds 2 Softgel] 1 cap PO BID Triamcinolone 0.025% Cream [Kenalog 0.025% Cream] 1 applic TOPICAL BID Nystatin 100,000Unit/gm Cream [Mycostatin Cream] 1 applic TOPICAL BID Discharge Medication List Rivaroxaban [Xarelto] 20 mg PO DAILY 02/21/14 [History] lisinopriL [Zestril] 5 mg PO DAILY 02/21/14 [History] Cholecalciferol [Vitamin D3 (25 Mcg = 1000 Iu)] 50 mcg PO BID 10/09/20 [History] Metoprolol Tartrate [Lopressor] 25 mg PO BID 10/09/20 [History] Nystatin 100,000Unit/gm Cream [Mycostatin Cream] 1 applic TOPICAL BID 08/06/21 [History] Triamcinolone 0.025% Cream [Kenalog 0.025% Cream] 1 applic TOPICAL BID 08/06/21 [History] Vit C/E/Zn/Coppr/Lutein/Zeaxan [Preservision Areds 2 Softgel] 1 cap PO BID 08/06/21 [History] Doxycycline Hyclate 100 mg PO BID #20 tab 08/10/21 [Rx] SILVER sulfADIAZINE CREAM [Silvadene Cream] 1 applic TOPICAL DAILY #60 gm 08/10/21 [Rx] Follow up Appointment(s)/Referral(s): [facility], [NON-STAFF] - As Needed Demarco Calderon MD [Primary Care Provider] - 1 Week (office busy at time of discharge. Please call to schedule appointment ) Discharge Disposition: HOME WITH HOME HEALTH SERVICES
--- NOTE | 2021-08-10 13:43 | P.PN ---
Subjective Progress Note Date: 08/10/21 Principal diagnosis: Left lower extremity cellulitis Patient is 81-year-old male with a recent laceration to the left leg from a wheelchair subsequently developing cellulitis admitted to the hospital for treatment of underlying cellulitis. On today's evaluation that is 08/10/2021, The patient remains to be afebrile, the patient denies having any chest pain shortness of breath or cough no nausea vomiting no abdominal pain overall pain and discomfort to the lower extremity has improved and denies having any drainage Objective - Vital Signs Vital signs: Vital Signs Temp 98.1 F 08/10/21 08:30 Pulse 95 08/10/21 08:30 Resp 20 08/10/21 08:30 BP 111/71 08/10/21 08:30 Pulse Ox 96 08/10/21 08:00 Intake & Output 08/09/21 08/10/21 08/10/21 18:59 06:59 18:59 Intake Total 180 Balance 180 Intake: Oral 180 Other: Voiding Method Toilet Toilet Toilet # Voids 6 5 - Exam GENERAL DESCRIPTION: An elderly male lying in bed in no distress RESPIRATORY SYSTEM: Unlabored breathing , decreased breath sounds at bases HEART: S1 S2 regular rate and rhythm , ABDOMEN: Soft , no tenderness EXTREMITIES: Left lower extremity swelling redness is improved there is no drainage - Labs CBC & Chem 7: 08/07/21 06:42 08/07/21 06:42 Labs: Microbiology - Last 24 Hours (Table) 08/08/21 10:30 Gram Stain - Final Leg - Right Wound Culture - Final 08/06/21 20:30 Blood Culture - Preliminary Blood No Growth after 72 hours 08/06/21 20:45 Blood Culture - Preliminary Blood No Growth after 72 hours Assessment and Plan (1) Bilateral cellulitis of lower leg Current Visit: Yes Status: Acute Code(s): L03.116 - CELLULITIS OF LEFT LOWER LIMB; L03.115 - CELLULITIS OF RIGHT LOWER LIMB SNOMED Code(s): 418515869 Plan: 1patient presented to hospital with left lower extremity swelling and redness preceded by trauma to the left leg with a laceration likely component of cellulitis from gram-positive skin favian. 2Patient local culture has been negative and has shown overall clinical improvement with cefazolin plan to finish therapy with oral Keflex and to continue with Hu wrap to the leg to keep the swelling down and a close outpatient follow-up Time with Patient: Less than 30
[2021-08-10 15:23] VITALS: BP 99/61; PULSE 77; RESP 18; TEMP 98.2
== END 2021-08-10 18:08 | disposition home health service (06) | DRG 872 ==
LOC: EC 18:44 → 4SSUR 23:09
PROVIDERS: ADMIT Internal Medicine Geriatric Medicine; ATTEND Internal Medicine Geriatric Medicine
DX: A41.9 Sepsis, unspecified organism (principal); L03.116 Cellulitis of left lower limb; L03.115 Cellulitis of right lower limb; S81.812A Laceration without foreign body, left lower leg, initial encounter; Z86.73 Personal history of transient ischemic attack (TIA), and cerebral infarction without residual deficits; I87.8 Other specified disorders of veins; E78.5 Hyperlipidemia, unspecified; I10 Essential (primary) hypertension; Z79.01 Long term (current) use of anticoagulants; Z79.899 Other long term (current) drug therapy; Z87.442 Personal history of urinary calculi; W22.8XXA Striking against or struck by other objects, initial encounter
CPT/HCPCS: 36415; 80048; 80053; 85025; 85027; 87040; 87070; 87205; 93970; 96365; 96366; 96367; 99291